=== PATIENT | female | born 1980 | race Caucasian/White ===

== ENCOUNTER 2024-05-21 22:25 | Emergency (ER) | payer MEDICAID ==
[~2024-05-21] VITALS: Ht 167.6 cm; Wt 70.0 kg
[2024-05-21 22:28] VITALS: BP 155/96; PULSE 74; RESP 16; O2SAT 99
== END 2024-05-22 02:36 | disposition left against medical advice (07) ==
LOC: ER 22:25
DX: R51.9 Headache, unspecified (principal)
CPT/HCPCS: 99283